=== PATIENT | female | born 1960 | race Caucasian/White ===

== ENCOUNTER 2019-09-07 19:39 | Emergency (ER) | payer OTHER ==
[2019-09-07] MEDS ORDERED: Ketorolac Tromethamine 60 MG/2 ML VIAL ONE (19:50)
--- NOTE | 2019-09-07 23:52 | RAD ---
LEFT ANKLE THREE VIEWS: 09/07/19 There is considerable soft tissue swelling laterally and anteriorly. No acute fracture was demonstrat ed. The articular surfaces of the ankle appear intact. The only area in question was the very lateral part of the tibial plafond showed a slight irregularity but it was indeterminate for fracture. If pa in persists, follow-up images in 7 to 10 days could be helpful. IMPRESSION: Soft tissue swelling. See above. POS: HOME
--- NOTE | 2019-09-07 23:53 | RAD ---
LEFT KNEE FOUR VIEWS: 09/07/19 A knee arthroplasty is in place with no sign of loosening of the hardware. No acute fracture was seen , however, there does appear to be a large joint effusion. IMPRESSION: Joint effusion. POS: HOME
--- NOTE | 2019-09-07 23:54 | RAD ---
LEFT FOOT THREE VIEWS: 09/07/19 Mild hallux valgus is present with bunion formation along the medial first metatarsal head. No acute fracture was appreciated. The joints appear normal. A small calcaneal spur was seen. IMPRESSION: No acute finding. POS: HOME
== END 2019-09-07 20:32 | disposition home or self-care (01) ==
LOC: BURERS 19:39
DX: S93.492A Sprain of other ligament of left ankle, initial encounter (principal); F32.9 Major depressive disorder, single episode, unspecified; I10 Essential (primary) hypertension; Z79.899 Other long term (current) drug therapy; W18.30XA Fall on same level, unspecified, initial encounter
CPT/HCPCS: 96372; J1885